=== PATIENT | male | born 1980 | race Caucasian/White ===

== ENCOUNTER 2017-08-22 15:58 | Emergency (ER) | payer MEDICAID ==
[~2017-08-22] VITALS: Ht 162.6 cm; Wt 79.0 kg
[~2017-08-22 15:58] MED LIST: NO HOME MEDS
[2017-08-22] MEDS ORDERED: HYDR-565 PO (16:30)
[2017-08-22] MEDS ORDERED: AMOX-422 PO (16:30)
[2017-08-22 16:58] VITALS: BP 136/79
== END 2017-08-22 16:57 | disposition home or self-care (01) ==
LOC: ER 15:58
DX: K04.7 Periapical abscess without sinus (principal); Z79.899 Other long term (current) drug therapy
CPT/HCPCS: 99283

== ENCOUNTER 2019-08-14 16:28 | Emergency (ER) | payer MEDICAID, OTHER ==
[~2019-08-14] VITALS: Ht 167.6 cm; Wt 77.0 kg
[2019-08-14 17:17] VITALS: BP 126/89
== END 2019-08-14 17:40 | disposition home or self-care (01) ==
LOC: ER 16:29
DX: K64.8 Other hemorrhoids (principal); Z87.442 Personal history of urinary calculi; Z98.890 Other specified postprocedural states; Z90.89 Acquired absence of other organs
CPT/HCPCS: 99281

== ENCOUNTER 2020-03-01 23:20 | Emergency (ER) | payer OTHER ==
[~2020-03-01] VITALS: Ht 167.6 cm; Wt 75.0 kg
[2020-03-02] MEDS ORDERED: ketorolac trometh. 30mg/ml inj. IV ONE (00:30)
[2020-03-02] MEDS ORDERED: acetaminophen 325mg tablet PO ONE (00:30)
[2020-03-02] MEDS ORDERED: normal saline 1000ml 1,000 ML IV ONE (00:30)
[2020-03-02] MEDS ORDERED: iohexol 300mg/ml 100ml inj. ONE (00:39)
--- NOTE | 2020-03-02 01:01 | NUR ---
Jh RN: IV established. Fluids infusing. Pt medicated for pain. Pt to CT.
[2020-03-02 01:23] VITALS: BP 124/84
[2020-03-02 02:01] LABS: CLARITY,URINE CLEAR (Clear); COLOR,URINE YELLOW (Yellow); GLUCOSE, URINE NEGATIVE (Neg); KETONES,URINE NEGATIVE (Neg); LEUKOCYTE ESTERASE ,URINE NEGATIVE (Neg); NITRITES, URINE NEGATIVE (Neg); OCCULT BLOOD,URINE LARGE (Neg); PH,URINE 5.5 (4.8-8.0); PROTEIN,URINE 30 mg/dl (Neg)
[2020-03-02 02:07] LABS: BASOPHILS # (AUTO) 0.1 X10'3 (0-0.2); BASOPHILS % (AUTO) 0.5 % (0-1); EOSINOPHILS # (AUTO) 0.1 X10'3 (0-0.9); EOSINOPHILS % (AUTO) 0.3 % (0-6); HEMATOCRIT 46.7 % (42.0-52.0); LYMPHOCYTES # (AUTO) 2.7 X10'3 (1.1-4.8); LYMPHOCYTES % (AUTO) 14.7 % (21-51); MEAN CORPUSCULAR HEMOGLOBIN 30.5 PG (27.0-31.0); MEAN CORPUSCULAR HGB CONC 34.3 g/dL (33.0-36.5); MEAN CORPUSCULAR VOLUME 88.7 FL (78-98); MONOCYTES # (AUTO) 1.3 X10'3 (0-0.9); MONOCYTES % (AUTO) 7.5 % (2-12); NEUTROPHILS # (AUTO) 13.9 X10'3 (1.8-7.7); PLATELET COUNT 232 X10'3 (140-440); RED BLOOD COUNT 5.27 X10'6 (4.70-6.10); RED CELL DISTRIBUTION WIDTH 13.3 % (11.5-14.5)
[2020-03-02 02:11] LABS: UA COLLECTION TYPE URINAL
[2020-03-02 02:14] LABS: BACTERIA,URINE NONE SEEN /HPF (Neg); CAL OXALATE CRYSTALS FEW /HPF (NEGATIVE); MUCUS STRANDS MODERATE /LPF (Neg); SQUAMOUS EPITHELIAL CELL,UR NONE SEEN /LPF (FEW); WBC,URINE NONE SEEN /HPF (0-4)
[2020-03-02 02:15] LABS: ALANINE AMINOTRANSFERASE 38 U/L (12-78); ALBUMIN 3.9 G/DL (3.4-5.0); ALBUMIN/GLOBULIN RATIO 1.3 (1.1-1.5); ALKALINE PHOSPHATASE 52 IU/L (46-116); ANION GAP 10 (8-16); ASPARTATE AMINO TRANSFERASE 28 U/L (10-37); BILIRUBIN,TOTAL 0.6 MG/DL (0.1-1.0); BLOOD UREA NITROGEN 13 MG/DL (7-18); BUN/CREATININE RATIO 13.5 (5.4-32.0); CALCIUM 8.6 MG/DL (8.5-10.1); CHLORIDE 104 MMOL/L (99-107); CREATININE 0.96 MG/DL (0.60-1.10); GLUCOSE 88 MG/DL (70-104); POTASSIUM 3.8 MMOL/L (3.5-5.1); SODIUM 138 MMOL/L (135-145); TOTAL CARBON DIOXIDE 24.1 MMOL/L (24-32); eGFR 87 ML/MIN
[2020-03-02 02:27] LABS: URINE AMPHETAMINE SCREEN NEGATIVE (Neg); URINE BARBITUATE SCREEN NEGATIVE (Neg); URINE BENZODIAZEPINES SCREEN NEGATIVE (Neg); URINE CANNABINOID SCREEN NEGATIVE (Neg); URINE COCAINE SCREEN NEGATIVE (Neg); URINE METHADONE SCREEN NEGATIVE (Neg); URINE OPIATE SCREEN NEGATIVE (Neg); URINE PHENCYCLIDINE SCREEN NEGATIVE (Neg)
[2020-03-02] MEDS ORDERED: FLO0.4C PO (02:50)
== END 2020-03-02 03:05 | disposition home or self-care (01) ==
LOC: ER 23:21
DX: M25.511 Pain in right shoulder (principal); N20.0 Calculus of kidney; F10.10 Alcohol abuse, uncomplicated; Z98.890 Other specified postprocedural states; Z79.899 Other long term (current) drug therapy; V99.XXXA Unspecified transport accident, initial encounter; Y93.89 Activity, other specified; Y92.89 Other specified places as the place of occurrence of the external cause; Y99.8 Other external cause status; Y90.0 Blood alcohol level of less than 20 mg/100 ml
CPT/HCPCS: 36415; 71260; 80053; 80305; 81001; 85025; 93005; 96361; 96374; 99285; J1885; J7030; Q9967

== ENCOUNTER 2020-03-16 07:24 | Observation (INO) | payer OTHER ==
[~2020-03-16] VITALS: Ht 167.6 cm; Wt 78.0 kg
[~2020-03-16 07:24] MED LIST changes: +FLO0.4C PO
[2020-03-16] MEDS ORDERED: morphine 4 MG/ML inj SYRINge IV ONE (07:50)
[2020-03-16] MEDS ORDERED: ondansetron/PF 4mg/2ml inj IV ONE (07:50)
[2020-03-16] MEDS ORDERED: ketorolac trometh. 30mg/ml inj. IV ONE (07:50)
[2020-03-16] MEDS ORDERED: normal saline 1000ML IV soln IVB ONE (07:50)
[2020-03-16] MEDS ORDERED: morphine 2 MG/ML inj. syringe IV PRN ×3 (07:50→10:45)
[2020-03-16 08:06] LABS: CLARITY,URINE CLEAR (Clear); COLOR,URINE YELLOW (Yellow); GLUCOSE, URINE NEGATIVE (Neg); KETONES,URINE TRACE mg/dl (Neg); LEUKOCYTE ESTERASE ,URINE NEGATIVE (Neg); NITRITES, URINE NEGATIVE (Neg); OCCULT BLOOD,URINE MODERATE (Neg); PH,URINE 5.5 (4.8-8.0); PROTEIN,URINE NEGATIVE (Neg); UROBILINOGEN,URINE 0.2 E.U/dL (0.2-1.0)
[2020-03-16 08:11] LABS: UA COLLECTION TYPE CLN CATCH MIDSTREAM
[2020-03-16 08:19] LABS: MUCUS STRANDS FEW /LPF (Neg); SQUAMOUS EPITHELIAL CELL,UR FEW /LPF (FEW)
[2020-03-16 08:20] LABS: BASOPHILS # (AUTO) 0.1 X10'3 (0-0.2); BASOPHILS % (AUTO) 0.6 % (0-1); EOSINOPHILS # (AUTO) 0.1 X10'3 (0-0.9); EOSINOPHILS % (AUTO) 0.4 % (0-6); HEMATOCRIT 43.6 % (42.0-52.0); HEMOGLOBIN 14.8 g/dl (14.0-17.9); LYMPHOCYTES # (AUTO) 2.3 X10'3 (1.1-4.8); LYMPHOCYTES % (AUTO) 15.1 % (21-51); MEAN CORPUSCULAR HEMOGLOBIN 30.1 PG (27.0-31.0); MEAN CORPUSCULAR VOLUME 88.5 FL (78-98); MEAN PLATELET VOLUME 9.3 FL (7.4-10.4); MONOCYTES # (AUTO) 0.8 X10'3 (0-0.9); MONOCYTES % (AUTO) 5.2 % (2-12); NEUTROPHILS % (AUTO) 78.7 % (42-75); PLATELET COUNT 241 X10'3 (140-440); RED BLOOD COUNT 4.93 X10'6 (4.70-6.10); RED CELL DISTRIBUTION WIDTH 13.2 % (11.5-14.5); WHITE BLOOD COUNT 15.2 X10'3 (4.5-11.0)
[2020-03-16 08:21] LABS: BACTERIA,URINE FEW /HPF (Neg); WBC,URINE 0-4 /HPF (0-4)
[2020-03-16 08:34] LABS: PARTIAL THROMBOPLASTIN TIME 30 SECONDS (22-32)
[2020-03-16 08:37] LABS: ALANINE AMINOTRANSFERASE 32 U/L (12-78); ALBUMIN 3.9 G/DL (3.4-5.0); ALBUMIN/GLOBULIN RATIO 1.3 (1.1-1.5); ALKALINE PHOSPHATASE 115 IU/L (46-116); ANION GAP 11 (8-16); ASPARTATE AMINO TRANSFERASE 25 U/L (10-37); BILIRUBIN,TOTAL 0.5 MG/DL (0.1-1.0); BLOOD UREA NITROGEN 11 MG/DL (7-18); BUN/CREATININE RATIO 12.6 (5.4-32.0); CALCIUM 8.6 MG/DL (8.5-10.1); CHLORIDE 106 MMOL/L (99-107); CREATININE 0.87 MG/DL (0.60-1.10); GLUCOSE 98 MG/DL (70-104); LIPASE 57 U/L (73-393); MAGNESIUM 2.1 MG/DL (1.5-2.4); POTASSIUM 4.4 MMOL/L (3.5-5.1); SODIUM 139 MMOL/L (135-145); TOTAL CARBON DIOXIDE 22.2 MMOL/L (24-32); eGFR > 90 ML/MIN
[2020-03-16] MEDS ORDERED: NAPR220C62 PO (10:37)
[2020-03-16] MEDS ORDERED: FLO0.4C PO (10:38)
[2020-03-16] MEDS ORDERED: LORazepam 2 mg/ml vial IV PRN (10:45)
[2020-03-16] MEDS ORDERED: HYDROcodone/acetaminophen 5mg/325mg tablet PO PRN (10:45)
[2020-03-16] MEDS ORDERED: magnesium hydroxide 30ml (MOM) UD suspension PO PRN (10:45)
[2020-03-16] MEDS ORDERED: ondansetron/PF 4mg/2ml inj IV PRN (10:45)
[2020-03-16] MEDS ORDERED: acetaminophen 325mg tablet PO PRN ×2 (10:45)
[2020-03-16] MEDS ORDERED: mag hydrox/Alum hydrox/simeth 30ml oral suspension PO PRN (10:45)
[2020-03-16] MEDS ORDERED: thiamine inj. 100 MG in normal saline 100ml IV soln 100 ML IV ONE (10:45)
[2020-03-16] MEDS ORDERED: LORazepam 1 MG tablet PO PRN (10:45)
--- NOTE | 2020-03-16 11:20 | NUR ---
Patient in room ED 10. I have received report from Juanita in the Ed and had the opportunity to ask questions and assume patient care.
[2020-03-16 11:48] LABS: URINE AMPHETAMINE SCREEN NEGATIVE (Neg); URINE BARBITUATE SCREEN NEGATIVE (Neg); URINE BENZODIAZEPINES SCREEN NEGATIVE (Neg); URINE CANNABINOID SCREEN POSITIVE (Neg); URINE COCAINE SCREEN NEGATIVE (Neg); URINE METHADONE SCREEN NEGATIVE (Neg); URINE OPIATE SCREEN NEGATIVE (Neg); URINE PHENCYCLIDINE SCREEN NEGATIVE (Neg)
[2020-03-16] MEDS: pantoprazole 40mg Tablet.DR PO SCH (11:48)
[2020-03-16] MEDS: normal saline 1000ml 1,000 ML IV SCH ×2 (11:48→20:41)
[2020-03-16] MEDS ORDERED: folic acid 1mg/0.2ml inj IV SCH (12:00)
[2020-03-16] MEDS ORDERED: thiamine inj. 100 MG, MVI, adult No.4 with vit. K 10 ML in dextrose 5% water 500ml 500 ML IV SCH ×3 (12:00)
[2020-03-16 12:01] VITALS: BP 132/85
[2020-03-16] MEDS: HYDROcodone/acetaminophen 10/325mg tab PO PRN ×2 (12:06→19:03)
[2020-03-16 18:00] VITALS: BP 143/84
--- NOTE | 2020-03-16 18:32 | NUR ---
Problems reprioritized. Patient report given, questions answered & plan of care reviewed with Sherry.
--- NOTE | 2020-03-16 18:36 | NUR ---
Patient in room ORTHO 4022. I have received report from Shahrzad PARKER and had the opportunity to ask questions and assume patient care.
[2020-03-16] MEDS: heparin, porcine 5000 units/ml vial SQ SCH (19:36)
[2020-03-16] MEDS ORDERED: temazepam 15mg capsule PO PRN (21:00)
[2020-03-16 22:00] VITALS: BP 145/87
[2020-03-17] MEDS: normal saline 1000ml 1,000 ML IV SCH (02:02)
[2020-03-17] MEDS: HYDROcodone/acetaminophen 10/325mg tab PO PRN (02:56)
[2020-03-17 06:00] VITALS: BP 126/72
--- NOTE | 2020-03-17 06:20 | NUR ---
Patient in room ORTHO 4022. I have received report from [facility] and had the opportunity to ask questions and assume patient care.
--- NOTE | 2020-03-17 06:29 | NUR ---
Problems reprioritized. Patient report given, questions answered & plan of care reviewed with Shahrzad PARKER.
[2020-03-17 06:37] LABS: BASOPHILS # (AUTO) 0.1 X10'3 (0-0.2); BASOPHILS % (AUTO) 0.4 % (0-1); EOSINOPHILS # (AUTO) 0.1 X10'3 (0-0.9); EOSINOPHILS % (AUTO) 0.5 % (0-6); HEMATOCRIT 40.1 % (42.0-52.0); HEMOGLOBIN 13.7 g/dl (14.0-17.9); MEAN CORPUSCULAR HEMOGLOBIN 30.2 PG (27.0-31.0); MEAN CORPUSCULAR HGB CONC 34.1 g/dL (33.0-36.5); MEAN CORPUSCULAR VOLUME 88.4 FL (78-98); MEAN PLATELET VOLUME 9.4 FL (7.4-10.4); MONOCYTES # (AUTO) 1.2 X10'3 (0-0.9); MONOCYTES % (AUTO) 8.6 % (2-12); NEUTROPHILS # (AUTO) 10.8 X10'3 (1.8-7.7); NEUTROPHILS % (AUTO) 76.5 % (42-75); PLATELET COUNT 212 X10'3 (140-440); RED BLOOD COUNT 4.53 X10'6 (4.70-6.10); RED CELL DISTRIBUTION WIDTH 12.9 % (11.5-14.5); WHITE BLOOD COUNT 14.1 X10'3 (4.5-11.0)
[2020-03-17 06:55] LABS: ALANINE AMINOTRANSFERASE 25 U/L (12-78); ALBUMIN 3.2 G/DL (3.4-5.0); ALBUMIN/GLOBULIN RATIO 1.1 (1.1-1.5); ALKALINE PHOSPHATASE 102 IU/L (46-116); ANION GAP 9 (8-16); ASPARTATE AMINO TRANSFERASE 26 U/L (10-37); BILIRUBIN,TOTAL 0.6 MG/DL (0.1-1.0); BLOOD UREA NITROGEN 14 MG/DL (7-18); BUN/CREATININE RATIO 10.3 (5.4-32.0); CALCIUM 8.2 MG/DL (8.5-10.1); CHLORIDE 106 MMOL/L (99-107); CREATININE 1.36 MG/DL (0.60-1.10); GLUCOSE 92 MG/DL (70-104); POTASSIUM 4.3 MMOL/L (3.5-5.1); SODIUM 138 MMOL/L (135-145); TOTAL CARBON DIOXIDE 23.4 MMOL/L (24-32); TOTAL PROTEIN 6.1 G/DL (6.4-8.2); eGFR 58 ML/MIN
[2020-03-17] MEDS ORDERED: nicotine 14mg patch - 24hr TD SCH (08:00)
[2020-03-17] MEDS ORDERED: CefTRIAXone 2gm/D5W 50ml 50 ML IV SCH (08:00)
[2020-03-17] MEDS: pantoprazole 40mg Tablet.DR PO SCH (08:10)
[2020-03-17] MEDS ORDERED: thiamine 100mg tablet PO SCH (08:16)
[2020-03-17] MEDS ORDERED: multivitamins, therapeutics tablet PO SCH (08:16)
[2020-03-17] MEDS: heparin, porcine 5000 units/ml vial SQ SCH (08:22)
[2020-03-17 09:00] VITALS: BP 132/87
--- NOTE | 2020-03-17 11:26 | NUR ---
PAGER ID: [phone] MESSAGE: Good morning, Mr. Sterling is anxious and asking to go home, Dr. Vega arranged lithotripsy for Thursday at [facility], just alyssa Markham on ortho
[2020-03-17] MEDS ORDERED: HYDR-4383 PO (11:44)
[2020-03-17] MEDS ORDERED: CIPR-230 PO (11:45)
--- NOTE | 2020-03-17 12:13 | NUR ---
Reviewed discharge instructions with pt. Pt verbalized understanding. Pt is alert, oriented and does not c/o pain. All of pt's belongings were returned to pt. Rx for abx was called in to Steve on [address]. Pt given a triplicate for [place], copy of Rx placed in chart. Pt walked downstairs unassisted to be driven home by his spouse. Pt has lithotripsy scheduled for Thursday, Mar 19 at [facility].
[2020-03-18] MEDS ORDERED: folic acid 1mg tablet PO SCH (08:00)
== END 2020-03-17 11:56 | disposition home or self-care (01) ==
LOC: ER 07:25 → ED HOLD 10:41 → ORTHO 4S 11:44
PROVIDERS: ADMIT Internal Medicine; ATTEND Internal Medicine
DX: N13.2 Hydronephrosis with renal and ureteral calculous obstruction (principal); D72.829 Elevated white blood cell count, unspecified; F12.90 Cannabis use, unspecified, uncomplicated; F10.99 Alcohol use, unspecified with unspecified alcohol-induced disorder; Z72.0 Tobacco use; Z90.79 Acquired absence of other genital organ(s); Z87.828 Personal history of other (healed) physical injury and trauma
CPT/HCPCS: 36415; 74018; 74176; 76775; 80053; 80305; 81001; 83605; 83690; 83735; 85025; 85610; 85730; 87040; 87081; 93005; 96361; 96365; 96366; 96367; 96372; 96375; 96376; 99285; G0378; J0696; J1644; J1885; J2270; J2405; J3411; J3490; J7030; J7060

== ENCOUNTER 2020-08-30 02:59 | Emergency (ER) | payer OTHER ==
[~2020-08-30] VITALS: Ht 167.6 cm; Wt 77.3 kg
[~2020-08-30 02:59] MED LIST changes: +HYDR-4383 PO; -NO HOME MEDS
[2020-08-30 03:31] LABS: BASOPHILS % (AUTO) 0.3 % (0-1); EOSINOPHILS # (AUTO) 0.1 X10'3 (0-0.9); EOSINOPHILS % (AUTO) 0.8 % (0-6); HEMATOCRIT 51.3 % (42.0-52.0); HEMOGLOBIN 17.5 g/dl (14.0-17.9); LYMPHOCYTES # (AUTO) 2.3 X10'3 (1.1-4.8); LYMPHOCYTES % (AUTO) 14.5 % (21-51); MEAN CORPUSCULAR HGB CONC 34.1 g/dL (33.0-36.5); MEAN CORPUSCULAR VOLUME 87.9 FL (78-98); MEAN PLATELET VOLUME 9.2 FL (7.4-10.4); MONOCYTES # (AUTO) 1.7 X10'3 (0-0.9); MONOCYTES % (AUTO) 10.3 % (2-12); NEUTROPHILS # (AUTO) 11.9 X10'3 (1.8-7.7); NEUTROPHILS % (AUTO) 74.1 % (42-75); PLATELET COUNT 264 X10'3 (140-440); RED BLOOD COUNT 5.83 X10'6 (4.70-6.10); RED CELL DISTRIBUTION WIDTH 14.2 % (11.5-14.5)
[2020-08-30 03:41] LABS: ALANINE AMINOTRANSFERASE 30 U/L (12-78); ALBUMIN 4.5 G/DL (3.4-5.0); ALBUMIN/GLOBULIN RATIO 1.2 (1.1-1.5); ALKALINE PHOSPHATASE 77 IU/L (46-116); ANION GAP 14 (8-16); ASPARTATE AMINO TRANSFERASE 33 U/L (10-37); BILIRUBIN,TOTAL 1.4 MG/DL (0.1-1.0); BLOOD UREA NITROGEN 15 MG/DL (7-18); BUN/CREATININE RATIO 16.9 (5.4-32.0); CALCIUM 9.6 MG/DL (8.5-10.1); CHLORIDE 102 MMOL/L (99-107); CREATININE 0.89 MG/DL (0.60-1.10); GLUCOSE 102 MG/DL (70-104); LIPASE 55 U/L (73-393); MAGNESIUM 2.3 MG/DL (1.5-2.4); POTASSIUM 3.7 MMOL/L (3.5-5.1); SODIUM 137 MMOL/L (135-145); TOTAL CARBON DIOXIDE 21.1 MMOL/L (24-32); TOTAL PROTEIN 8.2 G/DL (6.4-8.2); eGFR > 90 ML/MIN
[2020-08-30 03:44] LABS: CLARITY,URINE CLEAR (Clear); COLOR,URINE YELLOW (Yellow); GLUCOSE, URINE NEGATIVE (Neg); KETONES,URINE 40 mg/dl (Neg); LEUKOCYTE ESTERASE ,URINE NEGATIVE (Neg); NITRITES, URINE NEGATIVE (Neg); OCCULT BLOOD,URINE MODERATE (Neg); PH,URINE 5.5 (4.8-8.0); PROTEIN,URINE TRACE mg/dl (Neg); UROBILINOGEN,URINE 0.2 E.U/dL (0.2-1.0)
[2020-08-30 03:47] LABS: UA COLLECTION TYPE CLN CATCH MIDSTREAM
[2020-08-30 03:54] LABS: BACTERIA,URINE 1+ /HPF (Neg); SQUAMOUS EPITHELIAL CELL,UR FEW /LPF (FEW); WBC,URINE 0-4 /HPF (0-4)
[2020-08-30 03:55] LABS: FINE GRANULAR CAST 0-3 /LPF (NEGATIVE); HYALINE CASTS 0-3 /LPF (NEGATIVE); MUCUS STRANDS MANY /LPF (Neg)
[2020-08-30 03:57] LABS: RENAL CELLS, URINE FEW /HPF
[2020-08-30] MEDS ORDERED: mag hydrox/Alum hydrox/simeth 30ml oral suspension PO ONE (05:05)
[2020-08-30] MEDS ORDERED: normal saline 1000ML IV soln IVB ONE (05:05)
[2020-08-30] MEDS ORDERED: LIDOcaine Viscous 15ml cup TP ONE (05:05)
--- NOTE | 2020-08-30 05:17 | NUR ---
Pt off with CT for abd film.
--- NOTE | 2020-08-30 05:20 | NUR ---
Pt returned from CT.
--- NOTE | 2020-08-30 06:08 | NUR ---
IV removed per patient request, patient states that abdominal pain is better than when he arrived and he now feels like the pain is gas pain and he plans to go home and drink oil to help with gas pain
[2020-08-30] MEDS ORDERED: ondansetron 4mg rapidly disintigrating tab PO ONE (06:50)
[2020-08-30] MEDS ORDERED: dicyclomine 10 MG capsule PO ONE (06:50)
[2020-08-30] MEDS ORDERED: ONDA4TAB6 PO (06:55)
[2020-08-30] MEDS ORDERED: DICY10CA88 PO (06:55)
[2020-08-30 07:13] VITALS: BP 138/86
== END 2020-08-30 08:53 | disposition home or self-care (01) ==
LOC: ER 03:01
DX: R10.84 Generalized abdominal pain (principal); R31.9 Hematuria, unspecified; F15.10 Other stimulant abuse, uncomplicated; F17.200 Nicotine dependence, unspecified, uncomplicated; Z87.442 Personal history of urinary calculi; Z98.890 Other specified postprocedural states; Z72.89 Other problems related to lifestyle; Z79.899 Other long term (current) drug therapy
CPT/HCPCS: 36415; 74018; 74176; 80053; 81001; 83690; 83735; 85025; 93005; 96360; 99285; J7030

== ENCOUNTER 2020-11-16 15:22 | Emergency (ER) | payer OTHER ==
[~2020-11-16] VITALS: Ht 167.6 cm; Wt 74.8 kg
[~2020-11-16 15:22] MED LIST changes: +ONDA4TAB6 PO
[2020-11-16 15:25] VITALS: BP 131/85
[2020-11-16] MEDS ORDERED: TETanus/Pertussis (Acell)/Diphther VAC/PF (Tdap-Adult) 0.5ml syringe IMVAC ONE (16:15)
[2020-11-16] MEDS ORDERED: LIDOcaine 1% W/epiNEPHrine 1:200,000 10ml vial IJ ONE (16:15)
[2020-11-16] MEDS ORDERED: CEPH250T PO (16:15)
[2020-11-16] MEDS ORDERED: SULF1TAB49 PO (16:15)
== END 2020-11-16 16:52 | disposition home or self-care (01) ==
LOC: ER 15:22
DX: L02.413 Cutaneous abscess of right upper limb (principal); L03.113 Cellulitis of right upper limb; Z20.3 Contact with and (suspected) exposure to rabies; Z87.442 Personal history of urinary calculi; Z98.890 Other specified postprocedural states; Z72.89 Other problems related to lifestyle; Z79.2 Long term (current) use of antibiotics; Z79.899 Other long term (current) drug therapy
CPT/HCPCS: 10060; 90471; 90715; 99283

== ENCOUNTER 2022-06-11 07:05 | Emergency (ER) | payer MEDICAID, OTHER ==
[~2022-06-11] VITALS: Ht 167.6 cm; Wt 72.7 kg
[2022-06-11 07:09] VITALS: BP 124/95
[2022-06-11] MEDS ORDERED: HYDR-3972 PO (07:50)
== END 2022-06-11 09:04 | disposition home or self-care (01) ==
LOC: ER 07:07
DX: M25.511 Pain in right shoulder (principal); Z87.442 Personal history of urinary calculi; Y92.89 Other specified places as the place of occurrence of the external cause; X50.0XXA Overexertion from strenuous movement or load, initial encounter; Y93.89 Activity, other specified; Y99.8 Other external cause status; Z90.49 Acquired absence of other specified parts of digestive tract
CPT/HCPCS: 73030; 99283